=== PATIENT | female | born 1980 | race Caucasian/White ===

== ENCOUNTER 2021-01-02 17:09 | Emergency (ER) | payer OTHER ==
[~2021-01-02] VITALS: Ht 157.5 cm; Wt 70.3 kg
[2021-01-02 17:10] VITALS: BP_SYST 119
[2021-01-02 17:41] VITALS: BP_SYST 119
== END 2021-01-02 17:43 ==
LOC: SED 17:09
DX: S12.400A Unspecified displaced fracture of fifth cervical vertebra, initial encounter for closed fracture (principal); S51.011A Laceration without foreign body of right elbow, initial encounter; V86.99XA Unspecified occupant of other special all-terrain or other off-road motor vehicle injured in nontraffic accident, initial encounter; Y93.89 Activity, other specified; Y92.89 Other specified places as the place of occurrence of the external cause; Y99.8 Other external cause status
CPT/HCPCS: 99283